=== PATIENT | female | born 1995 | race Caucasian/White ===

== ENCOUNTER 2017-05-30 02:25 | Emergency (ER) | payer BC ==
[~2017-05-30] VITALS: Ht 162.6 cm; Wt 70.6 kg
[~2017-05-30 02:25] MED LIST: BACTRIM,SEPT1 TABLET PO; DILAUDID2 MG PO; NOHOMEMEDS
[2017-05-30 02:44] LABS: BASOPHIL (%) 0.3 % (0-1); EOSINOPHIL (%) 0 % (0-5); HEMATOCRIT 41.9 % (36.0-46.0); HEMOGLOBIN 14.7 G/DL (11.9-15.5); IMMATURE GRANULOCYTE (%) 0.3 % (0.0-0.7); LYMPHOCYTE COUNT 0.8 K/uL (1.0-2.8); MCH 32.2 PG (29.0-34.0); MCHC 35.1 G/DL (30.0-36.0); MCV 91.9 FL (83-99); MONOCYTE (%) 11.4 % (3-12); MONOCYTE COUNT 0.8 K/uL (0-0.8); NEUTROPHIL COUNT 5.2 K/uL (1.8-6.4); PLATELET COUNT 226 K/uL (156-360); RBC DIS.WIDTH-SD 40.5 % (39-53); RED BLOOD COUNT 4.56 M/uL (3.80-5.20); WHITE BLOOD COUNT 6.8 K/uL (4.1-10.2)
[2017-05-30 02:55] LABS: CHLORIDE 104 mEq/L (99-109); POTASSIUM 3.6 mEq/L (3.7-5.4); SODIUM 137 mEq/L (136-147)
[2017-05-30 02:57] LABS: GLUCOSE 155 mg/dL (70-99)
[2017-05-30 02:59] LABS: TOTAL BILIRUBIN 0.4 mg/dL (0.0-1.0)
[2017-05-30 03:00] LABS: ALKALINE PHOSPHATASE 67 IU/L (3-129)
[2017-05-30 03:01] LABS: CREATININE 1.1 mg/dL (0.6-1.3); GFR ESTIMATE (CALCULATED) > 59 mL/min/
[2017-05-30 03:02] LABS: AST (GOT) 20 IU/L (2-34); UREA NITROGEN (BUN) 11 mg/dL (9-23)
[2017-05-30 03:03] LABS: ALT (GPT) 19 IU/L (3-49)
[2017-05-30] MEDS ORDERED: MOTRIN600 MG PO (04:45)
[2017-05-30] MEDS ORDERED: SUDAFED PE PRE1 EAC1 PO (04:45)
[2017-05-30] MEDS ORDERED: AUGMENTIN875 MG PO (04:45)
[2017-05-30 05:26] VITALS: BP 128/81
== END 2017-05-30 05:26 | disposition home or self-care (01) ==
LOC: EME 02:25
DX: H66.93 Otitis media, unspecified, bilateral (principal); R11.2 Nausea with vomiting, unspecified; T37.5X5A Adverse effect of antiviral drugs, initial encounter; J06.9 Acute upper respiratory infection, unspecified; K21.9 Gastro-esophageal reflux disease without esophagitis; Z90.49 Acquired absence of other specified parts of digestive tract; Z95.9 Presence of cardiac and vascular implant and graft, unspecified
CPT/HCPCS: 71046; 80053; 81003; 83690; 84702; 85025; 85027